=== PATIENT | male | born 1955 | race Caucasian/White ===

== ENCOUNTER 2019-10-21 08:00 | Outpatient (CLI) | payer OTHER ==
[2019-10-21 13:26] LABS: BASOPHILS % (AUTO) 0.5 %; EOSINOPHILS # (AUTO) 0.1 10^3/uL (0.0-0.7); EOSINOPHILS % (AUTO) 3.2 %; HGB - HEMOGLOBIN 13.7 g/dL (14.0-18.0); LYMPHOCYTES # (AUTO) 1.4 10^3/uL (1.5-3.5); LYMPHOCYTES % (AUTO) 38.3 %; MEAN CORPUSCULAR HEMOGLOBIN 31.1 pg (27.0-31.0); MEAN CORPUSCULAR VOLUME 97.3 fL (80.0-94.0); MEAN PLATELET VOLUME 10.9 fL (7.4-11.4); MONOCYTES # (AUTO) 0.3 10^3/uL (0.0-1.0); MONOCYTES % (AUTO) 8.8 %; NEUTROPHILS # (AUTO) 1.8 10^3/uL (1.5-6.6); NEUTROPHILS % (AUTO) 48.9 %; PLT - PLATELET COUNT 222 10^3/uL (130-450); RED CELL DISTRIBUTION WIDTH 13.7 % (12.0-15.0); WHITE BLOOD COUNT 3.7 x10^3/uL (4.8-10.8)
[2019-10-21 14:10] LABS: ALBUMIN 4.2 g/dL (3.2-5.5); ALBUMIN/GLOBULIN RATIO 1.4 (1.0-2.2); ALKALINE PHOSPHATASE 64 IU/L (42-121); ALT ALANINE AMINOTRANSFERASE 23 IU/L (10-60); AST ASPARTATE AMINOTRANSFERASE 27 IU/L (10-42); BUN - BLOOD UREA NITROGEN 19 mg/dL (6-20); CALCIUM 9.2 mg/dL (8.5-10.3); CARBON DIOXIDE - CO2 28 mmol/L (21-32); CHLORIDE 104 mmol/L (101-111); CHOL/HDL RATIO 2.8 (<5.0); CHOLESTEROL 199 mg/dL; GLUCOSE 115 mg/dL (70-100); HDL CHOLESTEROL 71 mg/dL; LDL CHOLESTEROL,CALCULATED 114 mg/dL; LDL/HDL RATIO 1.6 (<3.6); SODIUM 139 mmol/L (135-145); TOTAL PROTEIN 7.3 g/dL (6.7-8.2); VLDL CHOLESTEROL 14 mg/dL
== END 2019-10-21 23:59 | disposition home or self-care (01) ==
LOC: LAB.WCP 08:00
PROVIDERS: ATTEND Family Medicine
DX: I10 Essential (primary) hypertension (principal); Z12.5 Encounter for screening for malignant neoplasm of prostate; E79.0 Hyperuricemia without signs of inflammatory arthritis and tophaceous disease
CPT/HCPCS: 36415; 80053; 80061; 83721; 84153; 84443; 84550; 85025

== ENCOUNTER 2020-08-30 09:15 | Outpatient (CLI) | payer MEDICARE, BC ==
[2020-08-30 12:04] LABS: BILIRUBIN,URINE NEGATIVE (NEGATIVE); CLARITY,URINE CLEAR (CLEAR); GLUCOSE, URINE (UA) NEGATIVE (NEGATIVE); KETONES,URINE (UA) NEGATIVE (NEGATIVE); LEUKOCYTE ESTERASE, URINE NEGATIVE (NEGATIVE); NITRITE,URINE NEGATIVE (NEGATIVE); OCCULT BLOOD,URINE NEGATIVE (NEGATIVE); PROTEIN,URINE NEGATIVE (NEGATIVE); UROBILINOGEN,URINE 0.2 (NORMAL) E.U./dL (NORMAL)
[2020-08-30 12:12] LABS: BACTERIA,URINE None Seen /HPF (None Seen); RBC,URINE None Seen /HPF (0-5); SQUAMOUS EPITHELIAL CELL,UR RARE Squamous (<= Few); WBC,URINE 0-3 /HPF (0-3)
--- OUTSIDE RECORDS SUMMARY | 2020-09-05 01:49 | EXTERNAL MEDICAL SUMMARY RPT | Continuity of Care Document ---
:1955 Demographics Phone Unavailable Preferred Language Mongolian Marital Status Unknown Hoahaoism Affiliation Unknown Race Unknown Ethnic Group Unknown Author Organization [facility] Address [address] [id number] Phone Care Team Providers Name Role Phone Horras Unavailable Unavailable Horras Unavailable Unavailable Problems date description facility [id number] Dorsalgia, unspecified [facility] [id number] [facility] [id number], [id number] Other spondylosis with radiculopathy, [facility] [id number] Muscle spasm of back [facility] [id number] Other spondylosis with radiculopathy, [facility] [id number] Spinal stenosis, lumbar region without neurogenic [facility] claudicati [id number] Sprain of ligaments of lumbar spine, [facility] Procedures date description facility [id number] [facility] date description facility [id number] [facility] date description facility [id number] [facility] date description facility [id number] [facility] date description facility [id number] [facility] date description facility [id number] [facility] date description facility [id number] [facility] date description facility [id number] [facility] date description facility [id number] [facility] date description facility [id number] [facility] date description facility [id number] [facility] date description facility [id number] [facility] date description facility [id number] [facility] date description facility [id number] [facility] date description facility [id number] [facility] date description facility [id number] [facility] date description facility [id number] [facility] date description facility [id number] [facility] date description facility [id number] [facility] date description facility [id number] [facility] Vital Signs date measurement value source 20200628 BMI 23.8 kg/m2 20200628 BP_diastolic 76 mm[Hg] 20200628 BP_systolic 130 mm[Hg] 20200628 heart_rate 58 /min 20200628 height_metric 182.88 cm 20200628 height_standard 72 in 20200628 respiration_rate 16 /min 20200628 temperature_metric 36.61 C 20200628 temperature_standard 97.9 F 20200628 weight_metric 79.52 kg 20200628 weight_standard 175.31 lb date measurement value source 20200629 BMI 23.6 kg/m2 20200629 BP_diastolic 66 mm[Hg] 20200629 BP_systolic 126 mm[Hg] 20200629 heart_rate 61 /min 20200629 height_metric 182.88 cm 20200629 height_standard 72 in 20200629 respiration_rate 16 /min 20200629 temperature_metric 37 C 20200629 temperature_standard 98.6 F 20200629 weight_metric 35.84 kg 20200629 weight_standard 79.01 lb date measurement value source 20200713 BMI 24.0 kg/m2 20200713 heart_rate 70 /min 20200713 height_metric 182.88 cm 20200713 height_standard 72 in 20200713 respiration_rate 16 /min 20200713 weight_metric 36.42 kg 20200713 weight_standard 80.29 lb date measurement value source 20200720 BMI 23.6 kg/m2 20200720 BP_diastolic 68 mm[Hg] 20200720 BP_systolic 132 mm[Hg] 20200720 heart_rate 81 /min 20200720 height_metric 182.88 cm 20200720 height_standard 72 in 20200720 respiration_rate 16 /min 20200720 temperature_metric 36.89 C 20200720 temperature_standard 98.4 F 20200720 weight_metric 35.83 kg 20200720 weight_standard 78.98 lb date measurement value source 20200810 BMI 23.2 kg/m2 20200810 BP_diastolic 62 mm[Hg] 20200810 BP_systolic 128 mm[Hg] 20200810 heart_rate 62 /min 20200810 height_metric 182.88 cm 20200810 height_standard 72 in 20200810 respiration_rate 16 /min 20200810 temperature_metric 36.5 C 20200810 temperature_standard 97.7 F 20200810 weight_metric 35.29 kg 20200810 weight_standard 77.79 lb date measurement value source 20200817 BMI 23.1 kg/m2 20200817 BP_diastolic 64 mm[Hg] 20200817 BP_systolic 128 mm[Hg] 20200817 heart_rate 68 /min 20200817 height_metric 182.88 cm 20200817 height_standard 72 in 20200817 respiration_rate 16 /min 20200817 temperature_metric 36.67 C 20200817 temperature_standard 98 F 20200817 weight_metric 35.03 kg 20200817 weight_standard 77.22 lb date measurement value source 20200820 BMI 23.3 kg/m2 20200820 BP_diastolic 60 mm[Hg] 20200820 BP_systolic 134 mm[Hg] 20200820 heart_rate 65 /min 20200820 height_metric 182.88 cm 20200820 height_standard 72 in 20200820 respiration_rate 16 /min 20200820 temperature_metric 36.28 C 20200820 temperature_standard 97.3 F 20200820 weight_metric 35.5 kg 20200820 weight_standard 78.27 lb date measurement value source 20200827 BMI 23.4 kg/m2 20200827 BP_diastolic 70 mm[Hg] 20200827 BP_systolic 134 mm[Hg] 20200827 heart_rate 66 /min 20200827 height_metric 182.88 cm 20200827 height_standard 72 in 20200827 respiration_rate 16 /min 20200827 temperature_metric 36.39 C 20200827 temperature_standard 97.5 F 20200827 weight_metric 35.61 kg 20200827 weight_standard 78.5 lb date measurement value source 20200903 BMI 23.5 kg/m2 20200903 BP_diastolic 74 mm[Hg] 20200903 BP_systolic 136 mm[Hg] 20200903 heart_rate 54 /min 20200903 height_metric 182.88 cm 20200903 height_standard 72 in 20200903 respiration_rate 16 /min 20200903 temperature_metric 36.61 C 20200903 temperature_standard 97.9 F 20200903 weight_metric 35.7 kg 20200903 weight_standard 78.7 lb Social History date description facility [id number]
[2020-09-11 15:35] LABS: CHLAMYDIA TRACHOMATIS DNA NEGATIVE (NEGATIVE)
[2020-09-11 15:36] LABS: NEISSERIA GONORRHOEAE DNA NEGATIVE (NEGATIVE)
== END 2020-08-30 23:59 | disposition home or self-care (01) ==
LOC: LAB.R 09:15
PROVIDERS: ATTEND Nurse Practitioner
DX: Z20.2 Contact with and (suspected) exposure to infections with a predominantly sexual mode of transmission (principal)
CPT/HCPCS: 81001; 87086; 87491; 87591; 87661